=== PATIENT | male | born 1950 | race Caucasian/White ===

== ENCOUNTER 2019-10-04 11:29 | Emergency (ER) | payer MEDICARE ==
[~2019-10-04] VITALS: Ht 170.2 cm; Wt 79.1 kg
[2019-10-04 11:44] VITALS: Ht 170.2 cm; Wt 79.1 kg
[2019-10-04] MEDS ORDERED: CARDURA4 MG PO (11:45)
[2019-10-04] MEDS ORDERED: ALTACE10 MG PO (11:45)
[2019-10-04] MEDS ORDERED: CRESTOR5 MG PO (11:45)
[2019-10-04] MEDS ORDERED: ALBUTEROL SULF8.5 GM INH (11:46)
[2019-10-04 12:24] LABS: BASOPHILS 0.2 % (0-2); EOSINOPHILS 1.6 % (0-7); HEMATOCRIT 34.1 % (42.0-54.0); HEMOGLOBIN 11.9 g/dL (13.5-17.5); IMMATURE GRANULOCYTES 0.3 % (0-5); LYMPHOCYTES 8.8 % (15-50); MCH 33.2 pg (26.0-34.0); MCHC 34.9 g/dL (31.0-37.0); MCV 95.3 fL (80.0-100.0); MEAN PLATELET VOLUME 8.1 fL (7.4-10.4); MONOCYTES 8.5 % (2-11); NEUTROPHILS 80.6 % (40-80); PLATELET COUNT 235 10x3/uL (130-400); RBC 3.58 10x6/uL (4.20-6.10); RDW 12.1 % (11.5-14.5); WBC 16.1 10x3/uL (4.8-10.8)
[2019-10-04 12:30] LABS: CALC OSMOLALITY 253 mosm/kg (275-300); CARBON DIOXIDE 26.6 mmol/L (21.0-32.0); CHLORIDE - SERUM 89 mmol/L (98-107); POTASSIUM - SERUM 4.3 mmol/L (3.5-5.1); SODIUM 125 mmol/L (136-145); UREA NITROGEN 11 mg/dL (7-18); eGFR NON AFRICAN AMERICAN 79 mL/min (90-120)
[2019-10-04] MEDS ORDERED: SULFAMETHOXAZOL1 TA2 PO (12:36)
[2019-10-04 12:37] LABS: ALBUMIN 3.4 g/dL (3.4-5.0); ALKALINE PHOSPHATASE 84 U/L (46-116); ALT (SGPT) 32 U/L (10-68); BILIRUBIN - TOTAL 0.82 mg/dL (0.2-1.3); PROTEIN - SERUM 7.8 g/dL (6.4-8.2)
[2019-10-04 12:38] LABS: GLUCOSE 148 mg/dL (74-106); INR 1.1 (0.85-1.17); PROTIME 13.7 SECONDS (11.6-15.0)
[2019-10-04 12:41] VITALS: BP 148/82
== END 2019-10-04 12:43 | disposition home or self-care (01) ==
LOC: D.ER 11:29
PROVIDERS: Family Medicine
DX: L05.01 Pilonidal cyst with abscess (principal); I10 Essential (primary) hypertension; J45.909 Unspecified asthma, uncomplicated; Z72.0 Tobacco use